=== PATIENT | female | born 1975 | race Caucasian/White ===

== ENCOUNTER → 2022-03-11 | Outpatient (CLI) | payer BC ==
[2022-03-11 10:50] LABS: Basophils # (A) 0.04 X 10*3/uL (0.00-0.10); Basophils % (A) 0.7 %; Eosinophils # (A) 0.14 X 10*3/uL (0.04-0.35); Eosinophils % (A) 2.4 %; HCT 40.4 % (37.2-46.3); HGB 13.6 g/dL (12.0-15.0); Immature Grans, Automated 0.2 %; Lymphocytes # (A) 1.35 X 10*3/uL (0.90-5.00); Lymphocytes % (A) 23.2 %; MCHC 33.7 g/dL (32.0-37.0); Mean Platelet Volume 9.5 fL (9.5-12.2); Monocytes # (A) 0.42 X 10*3/uL (0.20-1.00); Monocytes % (A) 7.2 %; NRBC Per 100 WBC 0 /100 WBCS (0.0-0.0); Neutrophils # (A) 3.87 X 10*3/uL (1.80-7.70); Neutrophils % (A) 66.3 %; Platelet Count 218 X 10*3/uL (140-440); RBC 4.39 X 10*6/uL (4.10-5.20); RDW 12.4 % (11.5-14.5); WBC 5.83 X 10*3/uL (4.50-10.00)
[2022-03-11 14:30] LABS: African American GFR (CKD) 111.6 (60.0-200.0); Anion Gap 7.9 mmol/L (10.00-18.00); Blood Urea Nitrogen 10.7 mg/dL (9.0-27.0); Carbon Dioxide 26.8 mmol/L (20.0-27.5); Non-African American GFR(CKD) 96.3 (60.0-200.0); Potassium 4.3 mmol/L (3.5-5.5)
== END | disposition home or self-care (01) ==
LOC: LABPAT 07:25
PROVIDERS: ATTEND Obstetrics & Gynecology
DX: Z01.812 Encounter for preprocedural laboratory examination (principal); N92.0 Excessive and frequent menstruation with regular cycle; N39.3 Stress incontinence (female) (male); N81.11 Cystocele, midline; N81.6 Rectocele
CPT/HCPCS: 80051; 82565; 82947; 84520; 85025; 87086

== ENCOUNTER → 2022-03-14 | Outpatient (CLI) | payer BC | LOC: LABWHC1 16:26 | PROVIDERS: ATTEND Family Medicine | DX: Z01.812 Encounter for preprocedural laboratory examination (principal); J45.40 Moderate persistent asthma, uncomplicated; E78.2 Mixed hyperlipidemia; F41.1 Generalized anxiety disorder; N81.9 Female genital prolapse, unspecified | CPT/HCPCS: 36415; 93005 ==

== ENCOUNTER 2022-03-18 05:34 | Observation (INO) | payer BC, OTHER ==
[2022-03-13 12:46] VITALS: BMI 33.5
--- NOTE | 2022-03-14 13:54 | P.HPOB ---
History of Present Illness H&P Date: 03/14/22 Chief Complaint: Pelvic organ prolapse, urinary incontinence Ms. Arana is a 46 year old female who presents for pelvic organ prolapse for the past 2 months. She has noticed a vaginal bulge, has difficulty defecating, pelvic discomfort, and difficulty with intercourse. The bulge is estimated to be the size of a golf ball. Symptoms are exaggerated by standing, lifting, straining, and exercise. When she attempts to use a menstrual cup it is expelled throughout the day due to the prolapse. She also complains of stress urinary incontinence for the past few years with bending, coughing, exercise, laughing, running and sneezing. She leaks a moderate amount of urine and this occurs once or twice daily. She uses menstrual underwear to absorb the urine. Finally she complains of heavy menstrual bleeding. She has to change her menstrual cup every few hours and passes large clots. Menses last 7 days. She denies intermenstrual spotting. Menses are regular every 28 days. Past Medical History Past Medical History: Asthma Additional Past Medical History / Comment(s): Heartburn. Hx Migraine in past. History of Any Multi-Drug Resistant Organisms: None Reported Past Surgical History: Cholecystectomy, Tubal Ligation Additional Past Surgical History / Comment(s): LEEP Past Anesthesia/Blood Transfusion Reactions: No Reported Reaction Past Psychological History: Anxiety, Depression Smoking Status: Never smoker Past Alcohol Use History: None Reported Past Drug Use History: None Reported - Past Family History Mother Family Medical History: No Reported History Medications and Allergies Home Medications Medication Instructions Recorded Confirmed Type Budesonide [Pulmicort Flexhaler] 1 puff INHALATION BID 03/13/22 03/13/22 History Escitalopram [Lexapro] 10 mg PO HS 03/13/22 03/13/22 History Allergies Allergy/AdvReac Type Severity Reaction Status Date / Time Oral Antibiotics Allergy Rash/Hives Uncoded 03/13/22 12:52 Exam Focused phyiscal exam is performed. This is an obese, pleasant woman in no apparent distress. External genitalia are normal in appearnace for age, no discharge or lesions present. Level 3 anterior prolapse is noted, level 1/2 posterior prolapse is snoted. Good apical support. Cervix grossly normal appe aring. Uterus normal sized, mobile, midplane. No adnexal masses or tenderness appreciated. Assessment and Plan Assessment: 47 yo with level 3 anterior prolapse, heavy menstrual bleeding, and stress urinary incontinence who presents today for surgical management. Plan: Risks, benefits, and alternatives to surgery were discussed in detail including risk of bleeding, infection, damage to surrounding structures including bladder/bowel/ureters, postoperative urinary retention, postoperative VTE. Patient understands these risks and desires to proceed with Robotic total laparoscopic hysterectomy, bilateral salpingectomy, TVT Midurethral Sling, Anterior and Posterior Repair, Cystoscopy. Time with Patient: Less than 30
[2022-03-18] MEDS ORDERED: DEXAMETHASONE SOD PHOSPHATE 4 MG/ML 1 ML VIAL IV ONE (05:42)
[2022-03-18] MEDS ORDERED: LACTATED RINGERS 1,000 ML IV SCH (05:42)
[2022-03-18] MEDS ORDERED: MIDAZOLAM 2 MG/2 ML VIAL IV PRN (05:42)
[2022-03-18] MEDS ORDERED: LIDOCAINE 1% (10MG/ML) FOR IV START INTRADERMA PRN (05:42)
[2022-03-18] MEDS ORDERED: ONDANSETRON 4 MG/2 ML VIAL IVP ONE (05:42)
[2022-03-18] MEDS ORDERED: LACTATED RINGERS 1,000 ML IV ONE ×2 (05:48→08:43)
[2022-03-18] MEDS ORDERED: MIDAZOLAM 2 MG/2 ML VIAL IVP ONE (06:44)
[2022-03-18] MEDS ORDERED: fentaNYL (PF) 50 MCG/1 ML VIAL IVP ONE (06:44)
[2022-03-18] MEDS ORDERED: HYDROmorphone 0.5 MG/0.5 ML SYRINGE IVP PRN (07:00)
[2022-03-18] MEDS ORDERED: PHENYLEPHRINE-0.9% NACL SYG 1,000 MCG/10 ML SYRINGE ONE (07:14)
[2022-03-18] MEDS ORDERED: LIDOCAINE 2% INJ 20 MG/ML (2 ML VIAL) ONE (07:14)
[2022-03-18] MEDS ORDERED: fentaNYL (PF) 50 MCG/ML 2 ML AMP ONE (07:14)
[2022-03-18] MEDS ORDERED: MIDAZOLAM 2 MG/2 ML VIAL ONE (07:14)
[2022-03-18] MEDS ORDERED: MORPHINE SULFATE (PF) 0.3 MG/0.3 ML SYR ONE (07:14)
[2022-03-18] MEDS ORDERED: ROCURONIUM 10 MG/ML (5 ML VIAL) IV ONE (07:14)
[2022-03-18] MEDS ORDERED: SUCCINYLCHOLINE CHLORIDE 200 MG/10 ML VIAL IV ONE (07:14)
[2022-03-18] MEDS ORDERED: PROPOFOL 10 MG/ML 20 ML VIAL IV ONE (07:14)
[2022-03-18] MEDS ORDERED: GLYCOPYRROLATE 0.2 MG/ML 2 ML VIAL ONE (07:14)
[2022-03-18] MEDS ORDERED: NEOSTIGMINE 1 MG/ML 10 ML VIAL ONE (07:14)
--- NOTE | 2022-03-18 07:43 | P.ANPRN ---
Procedure Note - Anesthesia - Epidural/Spinal Spinal Time Out Performed: Yes Date of Procedure: 03/18/22 Procedure Start Time: 06:45 Procedure Stop Time: 07:00 Location of Patient: PreOp Indication: Acute Post-Operative Pain Sedation Type: Awake Preparation: Sterile Prep Position: Sitting Needle Guage: 25 Injectate: 300 mcg duramorph, 25 mcg fentanyl Blood Aspirated: No Pain Paresthesia on Injection Noted: No Events: Uneventful and Well Tolerated
[2022-03-18] MEDS ORDERED: BACITRACIN ZINC 500 UNIT/GM OINT 28.4 GM TUBE TOPICAL ONE (07:51)
[2022-03-18] MEDS ORDERED: VASOPRESSIN 20 UNIT/ML 1 ML VIAL IM ONE (07:51)
[2022-03-18] MEDS ORDERED: SIMETHICONE 80 MG CHEWABLE PO PRN (09:54)
[2022-03-18] MEDS ORDERED: diphenhydrAMINE 50 MG/ML 1 ML VIAL IVP PRN (09:54)
[2022-03-18] MEDS ORDERED: METOCLOPRAMIDE 5 MG/ML 2 ML VIAL IVP PRN (09:54)
[2022-03-18] MEDS ORDERED: ONDANSETRON 4 MG/2 ML VIAL IVP PRN (09:54)
[2022-03-18 10:29] VITALS: RESP 16
--- NOTE | 2022-03-18 10:36 | P.OP ---
Date of Procedure: 03/18/22 Preoperative Diagnosis: 1. Level 3 anterior wall prolapse 2. Stress Urinary Incontinence 3. Abnormal Uterine Bleeding Postoperative Diagnosis: Same. Procedure(s) Performed: Total Vaginal Hysterectomy, Left Salpingectomy, TVT Midurethral Sling, Anterior Repair, Cystoscopy. Implants: [employer] Advantage Fit TVT Sling Anesthesia: OLI Surgeon: Wilma Henson Access Liaison #1: Monico Ocasio Estimated Blood Loss (ml): 100 IV fluids (ml): 1,100 Urine output (ml): 400 (clear) Pathology: other (Uterus, cervix, and portion of left fallopian tube) Condition: stable Disposition: floor Indications for Procedure: This is a 47 yo with level 3 anterior prolapse, heavy menstrual bleeding, and stress urinary incontinence who presents today for surgical management. Risks, benefits, and alternatives to surgery were discussed in detail including risk of bleeding, infection, damage to surrounding structures including bladder/bowel/ureters, postoperative urinary retention, postoperative VTE. Patient understands these risks and desires to proceed with Total Vaginal Hysterectomy, bilateral salpingectomy, TVT Midurethral Sling, Anterior and Posterior Repair, Cystoscopy. I discussed that on in-office exam the posterior prolapse was not very significant, so we will see how the prolapse looks when she is relaxed under anesthesia to determine if she needs posterior repair. Operative Findings: Normal-appearing cervix, uterus, left fallopian tube and ovary visualized to be normal appearing. Unable to visualize the right fallopian tube and ovary fully. Cystoscopy: normal bladder wall with no suture, trauma or foreign body in the bladder or urethra. Bilateral ureteral jets visualized. Description of Procedure: Prior to the beginning of the procedure, the team paused to verify the patients identity, the procedure to be performed (in accordance with the consent), and the correct side/site. The patient was positioned appropriately. We addressed antibiotic prophylaxis and fluids for irrigation as applicable to this patient. Any safety precautions were addressed. The patient was prepped and draped in the usual sterile fashion after satisfactory anesthesia had been obtained with the patient positioned in the Santino Stirrups. An 18-Spanish Landers catheter was introduced into the patient's urethra, and the urine was drained. A weighted speculum was placed in the posterior vaginal vault. The cervix was grasped with a double tooth tenaculum clamp on both its anterior lip. Dilute vasopressin was injected along the cervix at the cervical-vaginal junction. With downward traction, we made a circumferential incision of the vaginal mucosa. Blunt dissection was used to push the bladder and vaginal mucosa away from the cervix. This allowed dissection and entrance into the posterior cul-de-sac using the Cox scissors. At this time we visualized the uterosacral ligaments. These were clamped and ligated with 0-Vicryl suture. The cervicovesical space was further developed by both blunt dissection, which allowed visualization of the cardinal ligaments. These were clamped and ligated with 0-Vicryl suture as well. The uterosacral-cardinal ligament complex was completely ligated with 0-Vicryl suture. The anterior cul-de-sac was then entered sharply. Omentum and intestines were then visualized through the anterior cul-de-sac window. The uterine arteries were then clamped and ligated with 0-Vicryl suture and carried upward toward the uterus until complete removal was obtained. 0-Vicryl suture was used on all major pedicles with Vik clamping. The uterine fundus was grasped with a towel clamp and inverted. The tubes and ovaries were visualized on either side. The ovarian-tubal complex was doubly ligated with 0-Vicryl suture. The left fallopian tube was clamped, cut, and ligated. Excellent hemostasis was noted from both pedicles. The peritoneum with 0-Vicryl in purse-string manner. A modified Schneider Culdoplasty was performed using 0-Vicryl suture on the uterosacral ligaments. Hemostasis was excellent. Then, closure of the vaginal mucosa was started using 0-Vicryl suture to place [id number]. Attention was then turned to the anterior aspect of the vaginal prolapse. The vaginal mucosa was held with allis clamps, where dilute vasopressin was injected inferior to the vaginal epithelium as a means for hydro-dissection. A vertical midline incision was given from under the urethra to the level of the cuff. The underlying endopelvic fascia and cystocele was then dissected away from the vaginal epithelium using Metzenbaum scissors and Allis clamps for retraction. The dissection was carried out to the lateral pelvic side wall on either side. Interrupted 2-0 Vicryl was then used to approximate the endopelvic fascia over the cystocele and thus reducing it. Once the cystocele was reduced, excess vaginal epithelium was trimmed. To begin the TVT portion of the procedure, two sites were marked on the anterior abdominal wall with a marking pen, one 1 fingerbreadth to the left and the other 1 fingerbreadth to the right of the midline, just above the pubic bone. Attention was now turned to the vaginal field. The anterior vaginal wall over the location of the mid urethra was then injected with dilute vasopressin in the mid portion of the vagina and the lateral aspects heading to the inferior surface of the pubic bone bilaterally. Two Allis clamps were then placed approximately 2 cm apart with the mid portion of the Allis clamps corresponding to the mid portion of the urethra as deter mined by palpation of the Landers within the patient's urethra. A scalpel was then used to incise between the 2 Allis clamps, and Metzenbaum scissors were used to dissect the vaginal mucosa off the overlying urethra heading to the inferior surface of the pubic bone bilaterally. The [employer] TVT trocar coupled to the plastic introducer sheath was now placed through the left sided anterior vaginal wall channel, and the trocar was rotated through the right retropubic space with careful attention being paid to stay beneath and behind the pubic bone as it rotated through the space up to the previously made stephen on the right anterior abdominal wall. The TVT trocar was uncoupled from the introducer sheath and the sheath was tagged and left in place. The TVT trocar was now placed into the second introducer sheath and positioned within the right anterior vaginal wall channel and rotated through the left retropubic space with careful attention being paid to stay beneath and behind the pubic bone as it rotated through this site up to the previously made stephen on the left anterior abdominal wall. 70-degree cystourethroscopy confirmed no trocar placement or any trauma to the bladder from either side, and no trauma to the urethra. Therefore, the bladder was drained, and the mesh was brought through the abdominal wall site. The mesh was brought to sit underneath the urethra without any tensioning at all as determined by a hemostat used as a spacer between the urethra and the sling. The hemostat as a spacer was used to stabilize the position of the mesh as plastic sheaths were removed through the abdominal wall site. The skin wounds were closed with the use of skin glue after trimming the mesh. The vaginal wound was closed with a running stitch of 2-0 Vicryl in a running locked fashion. Hemostasis was noted to be excellent throughout, and final sponge, instrument, and needle count was noted to be correct. The patient was moved back to the preoperative holding area in stable condition having tolerated the procedure well.
[2022-03-18] MEDS: KETOROLAC 15 MG/ML 1 ML VIAL IVP PRN (15:59)
[2022-03-18] MEDS: SENNOSIDES-DOCUSATE SODIUM 1 EACH TAB PO SCH (22:31)
[2022-03-19] MEDS ORDERED: ACETAMINOPHEN TAB 325 MG TAB PO PRN ×2 (01:55→09:58)
[2022-03-19] MEDS: KETOROLAC 15 MG/ML 1 ML VIAL IVP PRN (05:39)
--- NOTE | 2022-03-19 07:19 | P.PN ---
Progress Note - Text Progress Note Date: 03/19/22 Postoperative day 1 status post , vaginal hysterectomy under general endotrach eal anesthesia, and intrathecal morphine given for postoperative analgesia, patient doing well, there is no anesthesia related complications, Patient had no headache, vital signs stable , Assessment and plan= postop day 1 status post vaginal hysterectomy, doing well there is no anesthesia related complication.
[2022-03-19 07:23] LABS: Basophils % (A) 0 %; Eosinophils # (A) 0.1 k/uL (0-0.7); Eosinophils % (A) 1 %; HGB 11.3 gm/dL (11.4-16.0); Lymphocytes # (A) 1.8 k/uL (1.0-4.8); Lymphocytes % (A) 24 %; MCH 31.5 pg (25.0-35.0); MCHC 34.3 g/dL (31.0-37.0); MCV 91.8 fL (80.0-100.0); Mean Platelet Volume 7.2; Monocytes # (A) 0.4 k/uL (0-1.0); Monocytes % (A) 6 %; Neutrophils % (A) 67 %; Platelet Count 187 k/uL (150-450); RBC 3.59 m/uL (3.80-5.40); RDW 13.3 % (11.5-15.5); WBC 7.5 k/uL (3.8-10.6)
[2022-03-19 07:38] VITALS: BP 126/86; PULSE 62; TEMP 98.1
--- NOTE | 2022-03-19 08:40 | P.PN ---
Subjective Progress Note Date: 03/19/22 Principal diagnosis: s/p Total Vaginal Hysterectomy, Left Salpingectomy, Anterior Repair, TVT Midurethral Sling, Cystoscopy Patient is doing very well this morning, no acute events overnight. Patient in very minimal pain. Ambulating without difficulty. Catheter recently removed, awaiting void. Not passing flatus yet. Had breakfast this morning without nausea or vomiting. No pain or swelling in the legs. Objective - Vital Signs Vital signs: Vital Signs Temp 98.1 F 03/19/22 07:35 Pulse 62 03/19/22 07:35 Resp 16 03/19/22 07:35 BP 126/86 03/19/22 07:35 Pulse Ox 97 03/19/22 07:35 FiO2 Intake & Output 03/18/22 03/19/22 03/19/22 18:59 06:59 18:59 Intake Total 1250 Output Total 700 1550 Balance 550 -1550 Weight 83.8 kg Intake: IV 1250 Output: Urine 600 1550 Uretheral (Landers) 200 600 Estimated Blood Loss 100 - Gastrointestinal General gastrointestinal: Present: soft - Genitourinary Genitourinary Comment(s): Incisions on mons clean, dry, and intact - Psychiatric Psychiatric: Present: A&O x's 3, appropriate affect, intact judgment & insight - Labs CBC & Chem 7: 03/19/22 06:52 Labs: Abnormal Lab Results - Last 24 Hours (Table) 03/19/22 Range/Units 06:52 RBC 3.59 L (3.80-5.40) m/uL Hgb 11.3 L (11.4-16.0) gm/dL Hct 33.0 L (34.0-46.0) % Assessment and Plan Assessment: 47 yo with level 3 anterior prolapse, heavy menstrual bleeding, and stress urinary incontinence POD#1 s/p s/p Total Vaginal Hysterectomy, Left Salpingectomy, Anterior Repair, TVT Midurethral Sling, Cystoscopy Plan: - Patient meeting postoperative milestones appropriately - VSS, postoperative Hgb stable Dispo: Patient will be stable for discharge once voiding, likely this afternoon. Will check postvoid residual after her first void. Continue to [facility] at this time. Discussed pelvic rest for 6 weeks and no heavy lifting more than 15 pounds for 6 weeks. Otherwise, activity as tolerated once discharged. Follow up in the office in 2 weeks. Time with Patient: Less than 30 (15 minutes)
[2022-03-19] MEDS ORDERED: IBUPROFEN 600 MG TAB PO PRN (08:45)
--- NOTE | 2022-03-19 08:45 | P.DS ---
Providers Date of admission: 03/18/2022 Expected date of discharge: 03/19/22 Attending physician: Wilma Henson MD Primary care physician: Damaris Barry [facility] Course: 47 year old POD#1 s/p s/p Total Vaginal Hysterectomy, Left Salpingectomy, Anterior Repair, TVT Midurethral Sling, Cystoscopy. Patient met all postoperative milestones appropriately. Plan for discharge home. Discussed restrictions including pelvic rest for 6 weeks and no lifting heavier than 15 pounds. Will follow up in the office in 2 weeks. Assessment: Discharge to home. Follow up in 2 weeks. Plan - Discharge Summary Discharge Rx Participant: No New Discharge Prescriptions: New Acetaminophen Tab [Tylenol] 650 mg PO Q6H PRN #30 tab PRN Reason: Mild Pain (Scale 1 To 3) Ibuprofen [Motrin] 600 mg PO Q6HR PRN #30 tab PRN Reason: Mild Pain (Scale 1 To 3) No Action Budesonide [Pulmicort Flexhaler] 1 puff INHALATION BID Escitalopram [Lexapro] 10 mg PO HS Discharge Medication List Budesonide [Pulmicort Flexhaler] 1 puff INHALATION BID 03/13/22 [History] Escitalopram [Lexapro] 10 mg PO HS 03/13/22 [History] Acetaminophen Tab [Tylenol] 650 mg PO Q6H PRN #30 tab 03/19/22 [Rx] Ibuprofen [Motrin] 600 mg PO Q6HR PRN #30 tab 03/19/22 [Rx] Follow up Appointment(s)/Referral(s): Wilma Henson MD [STAFF PHYSICIAN] - 2 Weeks Patient Instructions/Handouts: Vaginal Hysterectomy (DC), Anterior Vaginal Repair (DC), Bladder Sling for Women (DC) Activity/Diet/Wound Care/Special Instructions: Pelvic rest for 6 weeks. No lifting heavier than 15 pounds for 6 weeks. Otherwise, activity as tolerated. Discharge Disposition: HOME SELF-CARE
[2022-03-19] MEDS: SENNOSIDES-DOCUSATE SODIUM 1 EACH TAB PO SCH (10:47)
== END 2022-03-19 11:57 | disposition home or self-care (01) ==
LOC: OR 05:34 → 4FBP 09:38 → OR 10:31 → 4FBP 10:31
PROVIDERS: ADMIT Obstetrics & Gynecology; ATTEND Obstetrics & Gynecology
DX: N81.3 Complete uterovaginal prolapse (principal); N39.3 Stress incontinence (female) (male); N93.9 Abnormal uterine and vaginal bleeding, unspecified; E66.9 Obesity, unspecified; Z68.33 Body mass index [BMI] 33.0-33.9, adult; J45.909 Unspecified asthma, uncomplicated; R12 Heartburn; G43.909 Migraine, unspecified, not intractable, without status migrainosus; Z90.49 Acquired absence of other specified parts of digestive tract; Z98.51 Tubal ligation status; F41.9 Anxiety disorder, unspecified; F32.A Depression, unspecified; Z79.51 Long term (current) use of inhaled steroids; Z79.899 Other long term (current) drug therapy; Z88.1 Allergy status to other antibiotic agents
CPT/HCPCS: 81025; 86900; 86901; 85025; 86850; 88307; 58270; 57288; G0378; C1771; J2250; J0330; J1100; J2710; J0690; J2405; J2274; J3010 ×2; J1885 ×2; J2370; J2704; J2001

== ENCOUNTER → 2022-03-28 | Outpatient (CLI) | payer BC ==
--- NOTE | 2022-03-31 08:59 | MM ---
Reason for Exam: Screening (asymptomatic). Last mammogram was performed 4 year(s) and 5 month(s) ago. Patient History: Menarche at age 10. First Full-Term at age 20. Hysterectomy at age 47. Perimenopausal. Patient has history of breast feeding. Last menstrual period: 02/23/2022 Risk Values: Delmy 5 year model risk: 0.9%. NCI Lifetime model risk: 9.1%. Prior Study Comparison: 11/09/2015 Bilateral MG screening mammo w CAD - 2, [facility]. 10/23/2017 Bilateral MG screening mammo w CAD - 2, [facility]. Tissue Density: The breast tissue is heterogeneously dense. This may lower the sensitivity of mammography. Findings: Analyzed By CAD. There is no suspicious group of microcalcifications or new suspicious mass in either breast. Benign calcification within the right breast. Overall Assessment: Benign, BI-RAD 2 Management: Screening Mammogram of both breasts in 1 year. A clinical breast exam by your physician is recommended on an annual basis and results should be correlated with mammographic findings. Electronically signed and approved by: Fan Tello D.O.
== END | disposition home or self-care (01) ==
LOC: RADMAMWWP 10:10
PROVIDERS: ATTEND Obstetrics & Gynecology
DX: Z12.31 Encounter for screening mammogram for malignant neoplasm of breast (principal)
CPT/HCPCS: 77063; 77067